=== PATIENT | male | born 1965 ===

== ENCOUNTER 2020-03-01 02:16 | Emergency (ER) | payer MEDICARE, MEDICAID ==
[~2020-03-01] VITALS: Ht 175.3 cm; Wt 93.4 kg
[2020-03-01] MEDS ORDERED: ATOR10TA9 PO (02:31)
[2020-03-01] MEDS ORDERED: protonix (02:31)
[2020-03-01] MEDS ORDERED: LISI-167 PO (02:31)
--- NOTE | 2020-03-01 02:31 | NUR ---
recently relocated to [place] from [place], on disability for chronic back. Has been having flank pain for last several days
[2020-03-01 03:00] LABS: MICROSCOPIC NOT IND
[2020-03-01 03:18] LABS: MEAN CORPUSCULAR HEMOGLOBIN 29.1 pg (27.0-34.8); MEAN CORPUSCULAR HGB CONC 33.6 g/dL (32.4-35.8); MEAN PLATELET VOLUME 9.3 fL (7.4-10.4); PLATELET COUNT 173 x10^3/uL (130-400); RED BLOOD COUNT 4.37 x10^6/uL (3.82-5.3); RED CELL DISTRIBUTION WIDTH 15.1 % (9.6-15.2)
[2020-03-01 03:29] LABS: ALANINE AMINOTRANSFERASE 11 U/L (12-78); ALBUMIN 3.2 g/dL (3.4-5.0); ANION GAP 5 mmol/L (5-15); CALCIUM 8.8 mg/dL (8.5-10.1); CHLORIDE 108 mmol/L (98-107); CREATININE 1.22 mg/dL (0.7-1.3)
[2020-03-01 03:32] VITALS: BP 151/81
[2020-03-01 03:32] LABS: ALKALINE PHOSPHATASE 68 U/L (45-117); BILIRUBIN,TOTAL 0.3 mg/dL (0.2-1.0); MD NO; TOTAL PROTEIN 6.5 g/dL (6.4-8.2)
--- NOTE | 2020-03-01 03:33 | NUR ---
RESTING QUIETLY, NAD AT THIS TIME
[2020-03-01] MEDS ORDERED: METHOCARBAMOL 750 MG TABLET ONE (04:09)
[2020-03-01] MEDS ORDERED: METHOCARBAMOL 750 MG TABLET PO ONE (04:30)
== END 2020-03-01 04:42 | disposition home or self-care (01) ==
LOC: EDSEX 02:16 → ED 04:29
DX: R10.9 Unspecified abdominal pain (principal); Z76.0 Encounter for issue of repeat prescription; M54.5 Low back pain; M54.6 Pain in thoracic spine; M62.830 Muscle spasm of back; I10 Essential (primary) hypertension
CPT/HCPCS: 36415; 80053; 81003; 83690; 85025; 99283

== ENCOUNTER 2020-03-04 18:40 | Emergency (ER) | payer MEDICARE, MEDICAID ==
[~2020-03-04] VITALS: Ht 175.3 cm; Wt 91.7 kg
[~2020-03-04 18:40] MED LIST: ATOR10TA9 PO; LISI-167 PO; protonix
--- NOTE | 2020-03-04 19:33 | NUR ---
pt to room from lobby
[2020-03-04 22:27] VITALS: BP 139/90
== END 2020-03-04 22:29 | disposition home or self-care (01) ==
LOC: ED 21:30
DX: R13.12 Dysphagia, oropharyngeal phase (principal); K21.9 Gastro-esophageal reflux disease without esophagitis; I10 Essential (primary) hypertension
CPT/HCPCS: 74220; 99283